=== PATIENT | female | born 1960 | race Two or more races ===

== ENCOUNTER → 2019-03-07 13:31 | Outpatient (CLI) | payer OTHER, SELFPAY ==
[2019-03-10 16:09] LABS: HPV APTIMA, High Risk Negative (Negative)
== END ==
PROVIDERS: Visit Provider Obstetrics & Gynecology
DX: Z12.4 Encounter for screening for malignant neoplasm of cervix (principal)
CPT/HCPCS: 87624; 88175; G0145